=== PATIENT | female | born 1975 | race Caucasian/White ===

== ENCOUNTER 2017-08-30 18:10 | Emergency (ER) | payer SELFPAY ==
[~2017-08-30] VITALS: Ht 157.5 cm; Wt 59.0 kg
[~2017-08-30 18:10] MED LIST: BIRTH CONTROL PILL; BP PILL; CEPH500 PO; CIPR250 PO; CIPR500 PO; DOXY100 PO; HYDACE5 PO; METF500 PO; OXYACE7.5T PO; PARO20; PARO20 PO; PHENA200 PO; PROM25 PO; RXNEOPOLHC AD; RXONDA4ODT MM; RXOXYACE PO; SERT100 PO; SULTRIDS PO
[2017-08-30] MEDS ORDERED: BENZ100A PO (19:13)
[2017-08-30] MEDS ORDERED: DEXT30SU PO (19:13)
== END 2017-08-30 19:18 | disposition home or self-care (01) ==
LOC: ER 18:10
DX: B34.9 Viral infection, unspecified (principal); Z88.2 Allergy status to sulfonamides; Z88.8 Allergy status to other drugs, medicaments and biological substances
CPT/HCPCS: 99283

== ENCOUNTER 2022-03-05 12:47 | Emergency (ER) | payer SELFPAY ==
[~2022-03-05] VITALS: Ht 157.5 cm; Wt 59.0 kg
[~2022-03-05 12:47] MED LIST changes: +BENZ100A PO; +DEXT30SU PO
[2022-03-05] MEDS ORDERED: Veetids 500500 MG PO (14:06)
== END 2022-03-05 14:24 | disposition home or self-care (01) ==
LOC: ER 12:47
DX: J02.0 Streptococcal pharyngitis (principal); Z88.6 Allergy status to analgesic agent; Z88.2 Allergy status to sulfonamides; Z79.899 Other long term (current) drug therapy
CPT/HCPCS: 87430; A9270; J1100